=== PATIENT | male | born 1980 | race Caucasian/White ===

== ENCOUNTER 2017-11-15 12:34 | Inpatient (IN) | payer MEDICAID ==
[~2017-11-15] VITALS: Ht 174 cm; Wt 87.7 kg
[2017-11-15 13:05] LABS: BASOPHILS # (AUTO) 0.03 x10^3/uL (0-0.1); BASOPHILS % (AUTO) 0 % (0-1); EOSINOPHILS # (AUTO) 0.02 x10^3/uL (0-0.4); EOSINOPHILS % (AUTO) 0 % (1-7); LYMPHOCYTES # (AUTO) 1.68 x10^3/uL (1-3.4); LYMPHOCYTES % (AUTO) 20 % (22-44); MD NO; MEAN CORPUSCULAR HEMOGLOBIN 30.7 pg (27.5-34.5); MEAN CORPUSCULAR VOLUME 90.3 fL (81-97); MEAN PLATELET VOLUME 6.9 fL (7.4-10.4); MONOCYTES % (AUTO) 6 % (2-9); NEUTROPHILS # (AUTO) 6.17 x10^3/uL (1.8-6.8); NEUTROPHILS % (AUTO) 73 % (42-75); PLATELET COUNT 326 x10^3/uL (130-400); RED BLOOD COUNT 5.31 x10^6/uL (4.38-5.82); RED CELL DISTRIBUTION WIDTH 14.9 % (9.4-14.8)
[2017-11-15 13:17] LABS: ALBUMIN 3.6 g/dL (3.4-5.0); ANION GAP 15 mmol/L (5-15); CALCIUM 8.6 mg/dL (8.5-10.1); CHLORIDE 97 mmol/L (98-107)
[2017-11-15 13:21] LABS: ALANINE AMINOTRANSFERASE 36 U/L (12-78); ALKALINE PHOSPHATASE 172 U/L (45-117); BILIRUBIN,TOTAL 0.3 mg/dL (0.2-1.0); CREATININE 0.92 mg/dL (0.7-1.3); TOTAL PROTEIN 7.5 g/dL (6.4-8.2)
[2017-11-15 13:24] LABS: SALICYLATE LEVEL < 1.7 mg/dL (2.8-20.0)
[2017-11-15 13:27] LABS: ACETAMINOPHEN < 2 mcg/mL (10-30)
[2017-11-15 15:15] LABS: AMPHETAMINE SCREEN, URINE Negative (Negative); BARBITURATE SCREEN, URINE Negative (Negative); BENZODIAZEPINE SCREEN, URINE Negative (Negative); CANNABINOID SCREEN, URINE Negative (Negative); COCAINE SCREEN, URINE Negative (Negative); METHADONE SCREEN, URINE Negative (Negative); OPIATE SCREEN, URINE Negative (Negative)
[2017-11-15] MEDS ORDERED: CHLORDIAZEPOXIDE 25 MG CAPSULE ONE (19:57)
[2017-11-15] MEDS ORDERED: CHLORDIAZEPOXIDE 25 MG CAPSULE PO PRN (20:00)
[2017-11-15] MEDS ORDERED: LORazepam 1MG TABLET PO ONE ×2 (21:30→23:00)
[2017-11-15] MEDS ORDERED: LORazepam 1MG TABLET ONE ×2 (21:31→23:17)
[2017-11-16] MEDS: SODIUM CHLORIDE 0.9% 1,000 ML IV SCH ×2 (00:09→21:04)
[2017-11-16] MEDS ORDERED: PROMETHAZINE 25 MG/ML, 1ML IM PRN (00:30)
[2017-11-16] MEDS ORDERED: LORazepam 0.5MG TABLET PO PRN (00:30)
[2017-11-16] MEDS ORDERED: LABETALOL 5MG/ML, 20ML IVPush PRN (00:30)
[2017-11-16] MEDS ORDERED: POLYETHYLENE GLYCOL 17 GM PACKET PO PRN (00:30)
[2017-11-16] MEDS ORDERED: LORazepam 2 MG/ML, 1ML IV PRN ×3 (00:30)
[2017-11-16] MEDS ORDERED: ONDANSETRON ODT 4 MG PO PRN (00:30)
[2017-11-16] MEDS ORDERED: ONDANSETRON 2MG/ML, 2ML IVPush PRN (00:30)
[2017-11-16] MEDS ORDERED: hydrALAzine 20 MG/ML, 1ML IVPush PRN (00:30)
[2017-11-16] MEDS: CEPHALEXIN 500 MG CAPSULE PO SCH ×5 (00:30→21:03)
[2017-11-16] MEDS ORDERED: morphine SULFATE 10 MG/ML, 1ML IVPush PRN (00:30)
[2017-11-16] MEDS ORDERED: LORazepam 1MG TABLET PO PRN ×3 (00:30)
[2017-11-16] MEDS ORDERED: DOCUSATE 100 MG CAPSULE PO PRN (00:30)
[2017-11-16] MEDS ORDERED: BISACODYL 10 MG SUPP PR PRN (00:30)
[2017-11-16 00:45] LABS: FREE T4 (FREE THYROXINE) 1.05 ng/dL (0.76-1.46); THYROID STIMULATING HORMONE 0.808 mIU/L (0.358-3.740)
[2017-11-16 00:49] LABS: HEMOGLOBIN A1C 5.2 % (4.2-6.3)
[2017-11-16] MEDS ORDERED: CEPHALEXIN 250 MG CAPSULE ONE ×3 (00:56→17:39)
[2017-11-16] MEDS: HEPARIN 5,000 UNITS/ML, 1ML SQ SCH ×3 (01:01→17:41)
[2017-11-16 01:32] VITALS: BP 149/80
[2017-11-16] MEDS: POTASSIUM CHLORIDE 20 MEQ, MAGNESIUM SULFATE 2 GM, THIAMINE 100 MG, MVI ADULT 10 ML, FO... IV SCH (01:33)
[2017-11-16 06:39] VITALS: BP 151/89
[2017-11-16] MEDS: CHLORDIAZEPOXIDE 25 MG CAPSULE PO SCH ×3 (08:58→21:03)
[2017-11-16] MEDS: LORazepam 2 MG/ML, 1ML IV PRN ×2 (09:18→14:06)
[2017-11-16 13:20] VITALS: BP 144/80
[2017-11-16 14:15] LABS: MICROSCOPIC NOT IND
[2017-11-16 14:16] LABS: CULTURE INDICATED? NO
[2017-11-16 19:53] VITALS: BP 138/86
[2017-11-17] MEDS: POTASSIUM CHLORIDE 20 MEQ, MAGNESIUM SULFATE 2 GM, THIAMINE 100 MG, MVI ADULT 10 ML, FO... IV SCH (01:41)
[2017-11-17] MEDS: HEPARIN 5,000 UNITS/ML, 1ML SQ SCH ×3 (01:42→17:55)
[2017-11-17] MEDS: LORazepam 2 MG/ML, 1ML IV PRN ×3 (01:53→13:47)
[2017-11-17 02:06] VITALS: BP 129/77
[2017-11-17 06:12] LABS: BASOPHILS # (AUTO) 0.01 x10^3/uL (0-0.1); BASOPHILS % (AUTO) 0 % (0-1); EOSINOPHILS # (AUTO) 0.17 x10^3/uL (0-0.4); EOSINOPHILS % (AUTO) 4 % (1-7); LYMPHOCYTES # (AUTO) 1.54 x10^3/uL (1-3.4); LYMPHOCYTES % (AUTO) 36 % (22-44); MD NO; MEAN CORPUSCULAR HEMOGLOBIN 30.6 pg (27.5-34.5); MEAN CORPUSCULAR HGB CONC 33.7 g/dL (33.2-36.2); MEAN CORPUSCULAR VOLUME 90.8 fL (81-97); MEAN PLATELET VOLUME 7.3 fL (7.4-10.4); MONOCYTES # (AUTO) 0.38 x10^3/uL (0.2-0.8); MONOCYTES % (AUTO) 9 % (2-9); NEUTROPHILS # (AUTO) 2.17 x10^3/uL (1.8-6.8); NEUTROPHILS % (AUTO) 51 % (42-75); PLATELET COUNT 209 x10^3/uL (130-400); RED BLOOD COUNT 4.47 x10^6/uL (4.38-5.82); RED CELL DISTRIBUTION WIDTH 14.8 % (9.4-14.8)
[2017-11-17 06:21] LABS: ALANINE AMINOTRANSFERASE 27 U/L (12-78); ALBUMIN 2.6 g/dL (3.4-5.0); ANION GAP 8 mmol/L (5-15); CALCIUM 8.2 mg/dL (8.5-10.1); CHLORIDE 105 mmol/L (98-107); CHOLESTEROL, TOTAL 179 mg/dL (140-239); CREATININE 0.95 mg/dL (0.7-1.3)
[2017-11-17 06:23] LABS: ALKALINE PHOSPHATASE 131 U/L (45-117); BILIRUBIN,TOTAL 0.4 mg/dL (0.2-1.0); CHOL/HDL RATIO 3.8; HDL CHOL % 26 % (26-37); HDL CHOLESTEROL (DIRECT) 47 mg/dL (40-60); LDL CHOLESTEROL,CALCULATED 71 mg/dL (54-169); LDL/HDL RATIO 1.5 (0.5-3.0); TOTAL PROTEIN 5.8 g/dL (6.4-8.2); TRIGLYCERIDES 307 mg/dL (50-200); VLDL CHOLESTEROL 61 mg/dL (0-25)
[2017-11-17] MEDS: CEPHALEXIN 500 MG CAPSULE PO SCH ×4 (06:41→21:06)
[2017-11-17 07:16] VITALS: BP 123/78
[2017-11-17] MEDS ORDERED: CEPHALEXIN 250 MG CAPSULE ONE ×3 (09:55→20:57)
[2017-11-17] MEDS: CHLORDIAZEPOXIDE 25 MG CAPSULE PO SCH ×3 (10:07→21:00)
[2017-11-17 12:53] VITALS: BP 127/82
[2017-11-17] MEDS: LORazepam 1MG TABLET PO PRN (17:54)
[2017-11-17 20:46] VITALS: BP 128/74
[2017-11-18 00:09] VITALS: BP 118/69
[2017-11-18] MEDS: HEPARIN 5,000 UNITS/ML, 1ML SQ SCH ×3 (01:38→17:57)
[2017-11-18] MEDS: POTASSIUM CHLORIDE 20 MEQ, MAGNESIUM SULFATE 2 GM, THIAMINE 100 MG, MVI ADULT 10 ML, FO... IV SCH (01:38)
[2017-11-18] MEDS: CEPHALEXIN 500 MG CAPSULE PO SCH ×4 (06:28→20:27)
[2017-11-18] MEDS: LORazepam 1MG TABLET PO PRN ×3 (06:35→23:05)
[2017-11-18 07:07] VITALS: BP 116/74
[2017-11-18] MEDS: CHLORDIAZEPOXIDE 25 MG CAPSULE PO SCH ×3 (09:49→20:27)
[2017-11-18 12:26] VITALS: BP 145/79
[2017-11-18 20:00] VITALS: BP 117/75
[2017-11-19 00:39] VITALS: BP 115/76
[2017-11-19] MEDS: HEPARIN 5,000 UNITS/ML, 1ML SQ SCH ×3 (01:39→16:50)
[2017-11-19] MEDS: CEPHALEXIN 500 MG CAPSULE PO SCH ×4 (05:53→20:42)
[2017-11-19] MEDS: LORazepam 1MG TABLET PO PRN ×2 (08:49→16:50)
[2017-11-19] MEDS: CHLORDIAZEPOXIDE 25 MG CAPSULE PO SCH (08:49)
[2017-11-19 09:46] VITALS: BP 98/64
[2017-11-19 15:21] VITALS: BP 116/74
[2017-11-19 18:15] VITALS: BP 119/73
[2017-11-20 00:10] VITALS: BP 123/77
[2017-11-20] MEDS: HEPARIN 5,000 UNITS/ML, 1ML SQ SCH ×3 (01:47→17:59)
[2017-11-20] MEDS: CEPHALEXIN 500 MG CAPSULE PO SCH ×3 (05:38→17:59)
[2017-11-20 07:38] VITALS: BP 108/72
[2017-11-20] MEDS ORDERED: CEPH-376 PO (08:00)
[2017-11-20] MEDS ORDERED: LORA-446 PO (08:00)
[2017-11-20] MEDS ORDERED: CHLO25CA9 PO (08:00)
[2017-11-20] MEDS: LORazepam 1MG TABLET PO PRN (08:24)
[2017-11-20] MEDS ORDERED: CHLORDIAZEPOXIDE 25 MG CAPSULE PO SCH (09:00)
[2017-11-20 12:47] VITALS: BP 127/73
[2017-11-20 18:21] VITALS: BP 132/81
== END 2017-11-20 19:01 | DRG 897 ==
LOC: ED 15:04 → EDIP 22:58 → 4NOR 11-16 00:25
PROVIDERS: ADMIT Internal Medicine; ATTEND Internal Medicine
DX: F10.239 Alcohol dependence with withdrawal, unspecified (principal); R45.851 Suicidal ideations; F10.229 Alcohol dependence with intoxication, unspecified; F32.9 Major depressive disorder, single episode, unspecified; S91.302A Unspecified open wound, left foot, initial encounter; X58.XXXA Exposure to other specified factors, initial encounter; Y93.89 Activity, other specified; Y92.89 Other specified places as the place of occurrence of the external cause; Y99.8 Other external cause status; Z79.899 Other long term (current) drug therapy
CPT/HCPCS: 36415; 73650; 99285; J7042; 80053; 80061; 80307; 80329; 81003; 83036; 83735; 84439; 84443; 85025; 87070; 87077; 87147; 87186; 87205; 93005; G0378; J1644; J3411; J3475; J3480; G0480; J2060; J7030

== ENCOUNTER 2018-04-20 06:19 | Emergency (ER) | payer MEDICAID ==
[~2018-04-20] VITALS: Ht 172.7 cm; Wt 90.9 kg
[~2018-04-20 06:19] MED LIST: CEPH-376 PO; CHLO25CA9 PO; LORA-446 PO
--- NOTE | 2018-04-20 06:50 | NUR ---
RECEIVED BEDSIDE REPORT FROM ROSENDO ANGUIANO. PER REPORT PT HAS BEEN BINGE DRINKING FOR 5 DAYS. PT APPEARS TREMELOUS. VSS. LAB BEDSIDE.
[2018-04-20 07:00] LABS: BASOPHILS # (AUTO) 0.02 x10^3/uL (0-0.1); BASOPHILS % (AUTO) 0 % (0-1); EOSINOPHILS # (AUTO) 0.11 x10^3/uL (0-0.4); EOSINOPHILS % (AUTO) 1 % (1-7); LYMPHOCYTES % (AUTO) 20 % (22-44); MD NO; MEAN CORPUSCULAR HEMOGLOBIN 29.7 pg (27.5-34.5); MEAN CORPUSCULAR VOLUME 89.9 fL (81-97); MEAN PLATELET VOLUME 7.6 fL (7.4-10.4); MONOCYTES # (AUTO) 0.35 x10^3/uL (0.2-0.8); MONOCYTES % (AUTO) 3 % (2-9); NEUTROPHILS # (AUTO) 7.93 x10^3/uL (1.8-6.8); NEUTROPHILS % (AUTO) 76 % (42-75); PLATELET COUNT 357 x10^3/uL (130-400); RED BLOOD COUNT 5.37 x10^6/uL (4.38-5.82); RED CELL DISTRIBUTION WIDTH 14.1 % (9.4-14.8)
[2018-04-20] MEDS ORDERED: LORazepam 1MG TABLET PO ONE (07:00)
[2018-04-20] MEDS ORDERED: THIAMINE 100MG TABLET PO ONE (07:00)
[2018-04-20] MEDS ORDERED: LORazepam 1MG TABLET ONE (07:01)
[2018-04-20] MEDS ORDERED: THIAMINE 100MG TABLET ONE (07:02)
--- NOTE | 2018-04-20 07:05 | NUR ---
PER PT "MY LAST DRINK WAS LAST NIGHT AT 6PM. I'VE BEEN SOBER BEFORE FOR 7 MONTHS. I JUST GET REALLY DEPRESSED AND START DRINKING AGAIN. I WAS ON WELLS. I GET DEPRESSED BECAUSE OF MY MOM, DOG, EX GIRLFRIEND. I DON'T LIKE GOING TO THE [facility]. I DON'T HAVE A PLACE TO LIVE. NELI NEVER GOTTEN ANY HELP FOR MY DEPRESSION." VSS
[2018-04-20 07:09] LABS: ALANINE AMINOTRANSFERASE 39 U/L (12-78); ANION GAP 8 mmol/L (5-15); CALCIUM 9.6 mg/dL (8.5-10.1); CHLORIDE 108 mmol/L (98-107); CREATININE 1.04 mg/dL (0.7-1.3)
[2018-04-20 07:12] LABS: ALKALINE PHOSPHATASE 100 U/L (45-117); BILIRUBIN,TOTAL 0.3 mg/dL (0.2-1.0); TOTAL PROTEIN 7.8 g/dL (6.4-8.2)
[2018-04-20 08:01] VITALS: BP 118/73
--- NOTE | 2018-04-20 08:01 | NUR ---
Patient/Caregiver given discharge instructions and they have confirmed that they understand the instructions. Patient ambulatory with steady gait. PT LEFT WITH ALL PERSONAL BELONGINGS. PT GIVEN TAXI VOUCHER TO [place].
== END 2018-04-20 08:03 | disposition home or self-care (01) ==
LOC: ED 06:57
DX: T33.832A Superficial frostbite of left toe(s), initial encounter (principal); T33.831A Superficial frostbite of right toe(s), initial encounter; F10.239 Alcohol dependence with withdrawal, unspecified; R45.1 Restlessness and agitation; X58.XXXA Exposure to other specified factors, initial encounter; Y93.89 Activity, other specified; Y92.89 Other specified places as the place of occurrence of the external cause; Y99.8 Other external cause status
CPT/HCPCS: 36415; 80053; 80307; 85025; 99283

== ENCOUNTER 2018-06-05 14:53 | Inpatient (IN) | payer MEDICAID ==
[~2018-06-05] VITALS: Ht 182.9 cm; Wt 93.8 kg
[2018-06-05 15:46] LABS: BASOPHILS # (AUTO) 0.02 x10^3/uL (0-0.1); BASOPHILS % (AUTO) 0 % (0-1); EOSINOPHILS # (AUTO) 0.03 x10^3/uL (0-0.4); EOSINOPHILS % (AUTO) 0 % (1-7); LYMPHOCYTES # (AUTO) 1.54 x10^3/uL (1-3.4); LYMPHOCYTES % (AUTO) 18 % (22-44); MD NO; MEAN CORPUSCULAR HEMOGLOBIN 30.2 pg (27.5-34.5); MEAN CORPUSCULAR HGB CONC 33.5 g/dL (33.2-36.2); MEAN CORPUSCULAR VOLUME 90.3 fL (81-97); MEAN PLATELET VOLUME 8.2 fL (7.4-10.4); MONOCYTES # (AUTO) 0.56 x10^3/uL (0.2-0.8); MONOCYTES % (AUTO) 7 % (2-9); NEUTROPHILS # (AUTO) 6.48 x10^3/uL (1.8-6.8); NEUTROPHILS % (AUTO) 75 % (42-75); PLATELET COUNT 342 x10^3/uL (130-400); RED BLOOD COUNT 5.11 x10^6/uL (4.38-5.82); RED CELL DISTRIBUTION WIDTH 14.6 % (9.4-14.8)
[2018-06-05 15:57] LABS: ALBUMIN 4.3 g/dL (3.4-5.0); ANION GAP 13 mmol/L (5-15); CALCIUM 9.4 mg/dL (8.5-10.1); CHLORIDE 107 mmol/L (98-107)
--- NOTE | 2018-06-05 16:17 | NUR ---
TRAY SETTER: PT TO ROOM FROM LOBBY VIA WHEELCHAIR
[2018-06-05 16:44] LABS: HCT (SEDRATE) 46.1 % (39.2-51.8)
[2018-06-05] MEDS ORDERED: PIPERACILLIN/TAZO/PMX 3.375GM 50 ML IV ONE (17:00)
[2018-06-05] MEDS ORDERED: GABAPENTIN 300 MG CAPSULE PO ONE (17:00)
--- NOTE | 2018-06-05 17:06 | NUR ---
PER PT " I WAS TAKING GABAPENTIN AND AMOXICILLIN BUT MANTACHIE TOOK THEM AWAY. SO I HAVEN'T TAKEN THEM FOR OVER THREE WEEKS."
--- NOTE | 2018-06-05 17:08 | NUR ---
37 Y/O MALE PRESENTS TO ED WITH C/O FOOT PAIN. PER PT "MY FEET HURT. YOU CAN SEE THEY'RE SWOLLEN AND PUS IS COMING OUT. BOTH OF THEM HURT. THE RIGHT ONE IS BAD BECAUSE THE TOES ARE RED. BUT MY LEFT FOOT HURTS JUST BAD. I WAS AT [facility] FOR THE SAME THING FROM 03/26/2018-04/18/2018" PT PLACED ON CONT PULSE OX,NIBP. NO C/O TRAUMA, SYNCOPE, CP, SOB.
[2018-06-05 17:13] LABS: ACETONE, SERUM Negative (Negative)
--- NOTE | 2018-06-05 17:13 | NUR ---
PT TO IMAGING
[2018-06-05] MEDS ORDERED: GABAPENTIN 300 MG CAPSULE ONE (17:15)
[2018-06-05] MEDS ORDERED: PIPERACILLIN/TAZO/PMX 3.375GM 50 ML ONE (17:15)
--- NOTE | 2018-06-05 17:27 | NUR ---
REPORT TO ROSENDO GLEASON. ALL QUESTIONS ANSWERED
[2018-06-05] MEDS ORDERED: GADOBUTROL 7.5 MMOL/7.5 ML PFS ONE (17:36)
[2018-06-05] MEDS ORDERED: ONDANSETRON ODT 4 MG PO PRN (18:00)
[2018-06-05] MEDS ORDERED: LABETALOL 5 MG/ML SYRINGE IVPush PRN (18:00)
[2018-06-05] MEDS ORDERED: IBUPROFEN 600 MG TABLET PO PRN (18:00)
[2018-06-05] MEDS ORDERED: hydrALAzine 20 MG/ML, 1ML IVPush PRN (18:00)
[2018-06-05] MEDS ORDERED: VANCOMYCIN PER PHARMACY MC PRN (18:00)
[2018-06-05] MEDS ORDERED: ONDANSETRON 2MG/ML, 2ML IVPush PRN (18:00)
--- NOTE | 2018-06-05 18:03 | NUR ---
pt back from imaging. pt resting on gurney. no acute distress noted.
--- NOTE | 2018-06-05 18:28 | NUR ---
PT TRANSFERRED TO FLOOR. PT LEFT WITH ALL PERSONAL BELONGINGS.
[2018-06-05] MEDS ORDERED: PHARMACOKINETIC MONITORING MC PRN (18:30)
[2018-06-05 18:40] VITALS: BP 125/70
[2018-06-05] MEDS: AMPICILLIN/SULBACTAM 3 GM in SODIUM CHLORIDE 0.9% 100 ML IV SCH (20:41)
[2018-06-05] MEDS: SODIUM CHLORIDE 0.9% 1,000 ML IV SCH (20:42)
[2018-06-05] MEDS: GABAPENTIN 300 MG CAPSULE PO PRN (20:45)
[2018-06-05] MEDS: VANCOMYCIN 1,900 MG in SODIUM CHLORIDE 0.9% 250 ML IV SCH (22:56)
[2018-06-06 02:46] VITALS: BP 110/65
[2018-06-06] MEDS: AMPICILLIN/SULBACTAM 3 GM in SODIUM CHLORIDE 0.9% 100 ML IV SCH ×4 (03:27→21:20)
[2018-06-06 04:59] LABS: BASOPHILS # (AUTO) 0.03 x10^3/uL (0-0.1); BASOPHILS % (AUTO) 0 % (0-1); EOSINOPHILS # (AUTO) 0.14 x10^3/uL (0-0.4); EOSINOPHILS % (AUTO) 2 % (1-7); LYMPHOCYTES # (AUTO) 2.01 x10^3/uL (1-3.4); LYMPHOCYTES % (AUTO) 25 % (22-44); MD NO; MEAN CORPUSCULAR HEMOGLOBIN 30.8 pg (27.5-34.5); MEAN CORPUSCULAR HGB CONC 33.8 g/dL (33.2-36.2); MEAN CORPUSCULAR VOLUME 91.2 fL (81-97); MEAN PLATELET VOLUME 8.2 fL (7.4-10.4); MONOCYTES # (AUTO) 0.78 x10^3/uL (0.2-0.8); MONOCYTES % (AUTO) 10 % (2-9); NEUTROPHILS # (AUTO) 4.95 x10^3/uL (1.8-6.8); NEUTROPHILS % (AUTO) 63 % (42-75); PLATELET COUNT 272 x10^3/uL (130-400)
[2018-06-06 05:10] LABS: ANION GAP 6 mmol/L (5-15); CALCIUM 8.5 mg/dL (8.5-10.1); CHLORIDE 109 mmol/L (98-107); CREATININE 1.16 mg/dL (0.7-1.3)
[2018-06-06 07:38] VITALS: BP 93/48
[2018-06-06] MEDS: VANCOMYCIN 1,900 MG in SODIUM CHLORIDE 0.9% 250 ML IV SCH ×2 (10:59→23:19)
[2018-06-06] MEDS: GABAPENTIN 300 MG CAPSULE PO PRN ×2 (11:20→21:20)
[2018-06-06] MEDS: SODIUM CHLORIDE 0.9% 1,000 ML IV SCH ×2 (15:05→23:20)
[2018-06-06 15:41] VITALS: BP 103/67
[2018-06-06 16:56] LABS: AMPHETAMINE SCREEN, URINE Negative (Negative); BARBITURATE SCREEN, URINE Negative (Negative); BENZODIAZEPINE SCREEN, URINE Negative (Negative); CANNABINOID SCREEN, URINE Negative (Negative); COCAINE SCREEN, URINE Negative (Negative); METHADONE SCREEN, URINE Negative (Negative); OPIATE SCREEN, URINE Negative (Negative)
[2018-06-06] MEDS: DOCUSATE 100 MG CAPSULE PO PRN (17:38)
[2018-06-06 20:35] VITALS: BP 112/57
[2018-06-07 01:48] VITALS: BP 118/68
[2018-06-07] MEDS: AMPICILLIN/SULBACTAM 3 GM in SODIUM CHLORIDE 0.9% 100 ML IV SCH ×4 (03:34→20:43)
[2018-06-07 05:54] LABS: BASOPHILS # (AUTO) 0.03 x10^3/uL (0-0.1); BASOPHILS % (AUTO) 1 % (0-1); EOSINOPHILS # (AUTO) 0.32 x10^3/uL (0-0.4); EOSINOPHILS % (AUTO) 7 % (1-7); LYMPHOCYTES # (AUTO) 1.79 x10^3/uL (1-3.4); LYMPHOCYTES % (AUTO) 38 % (22-44); MD NO; MEAN CORPUSCULAR HEMOGLOBIN 30.3 pg (27.5-34.5); MEAN CORPUSCULAR HGB CONC 33.3 g/dL (33.2-36.2); MEAN CORPUSCULAR VOLUME 91.1 fL (81-97); MEAN PLATELET VOLUME 8.1 fL (7.4-10.4); MONOCYTES # (AUTO) 0.39 x10^3/uL (0.2-0.8); MONOCYTES % (AUTO) 8 % (2-9); NEUTROPHILS # (AUTO) 2.15 x10^3/uL (1.8-6.8); NEUTROPHILS % (AUTO) 46 % (42-75); PLATELET COUNT 247 x10^3/uL (130-400); RED BLOOD COUNT 4.02 x10^6/uL (4.38-5.82); RED CELL DISTRIBUTION WIDTH 15.5 % (9.4-14.8)
[2018-06-07 06:04] LABS: ALBUMIN 2.7 g/dL (3.4-5.0); ANION GAP 5 mmol/L (5-15); CALCIUM 8.1 mg/dL (8.5-10.1); CHLORIDE 112 mmol/L (98-107)
[2018-06-07 06:08] LABS: ALANINE AMINOTRANSFERASE 20 U/L (12-78); ALKALINE PHOSPHATASE 71 U/L (45-117); BILIRUBIN,TOTAL 0.2 mg/dL (0.2-1.0); CREATININE 1.02 mg/dL (0.7-1.3); TOTAL PROTEIN 5.5 g/dL (6.4-8.2)
[2018-06-07 07:49] VITALS: BP 110/59
[2018-06-07] MEDS: SODIUM CHLORIDE 0.9% 1,000 ML IV SCH (11:36)
[2018-06-07] MEDS: VANCOMYCIN 1,900 MG in SODIUM CHLORIDE 0.9% 250 ML IV SCH ×2 (11:36→23:03)
[2018-06-07] MEDS: GABAPENTIN 300 MG CAPSULE PO PRN ×2 (11:36→20:43)
[2018-06-07 14:51] VITALS: BP 124/61
[2018-06-07 20:54] VITALS: BP 116/79
[2018-06-08 01:24] VITALS: BP 113/86
[2018-06-08] MEDS: AMPICILLIN/SULBACTAM 3 GM in SODIUM CHLORIDE 0.9% 100 ML IV SCH ×4 (02:31→20:48)
[2018-06-08] MEDS: SODIUM CHLORIDE 0.9% 1,000 ML IV SCH ×2 (02:31→17:51)
[2018-06-08 07:36] VITALS: BP 128/69
[2018-06-08] MEDS: GABAPENTIN 300 MG CAPSULE PO PRN ×2 (09:04→23:06)
[2018-06-08] MEDS: VANCOMYCIN 1,900 MG in SODIUM CHLORIDE 0.9% 250 ML IV SCH (11:01)
[2018-06-08 14:46] VITALS: BP 112/68
[2018-06-08 20:23] VITALS: BP 120/64
[2018-06-09 01:10] VITALS: BP 121/58
[2018-06-09] MEDS: AMPICILLIN/SULBACTAM 3 GM in SODIUM CHLORIDE 0.9% 100 ML IV SCH ×4 (02:44→20:39)
[2018-06-09] MEDS: VANCOMYCIN 1,900 MG in SODIUM CHLORIDE 0.9% 250 ML IV SCH ×2 (05:15→23:02)
[2018-06-09] MEDS: SODIUM CHLORIDE 0.9% 1,000 ML IV SCH (07:00)
[2018-06-09 07:15] VITALS: BP 108/66
[2018-06-09 12:09] VITALS: BP 155/77
[2018-06-09] MEDS: KETOROLAC 30 MG/1 ML IVPush PRN ×2 (12:38→15:12)
[2018-06-09] MEDS ORDERED: MIDAZOLAM 1 MG/ML, 2ML ONE (17:48)
[2018-06-09] MEDS ORDERED: FENTANYL PF 250 MCG/5ML ONE (17:48)
[2018-06-09] MEDS ORDERED: PROPOFOL 10 MG/ML, 20ML ONE (17:50)
[2018-06-09] MEDS ORDERED: ONDANSETRON 2MG/ML, 2ML ONE (17:50)
[2018-06-09] MEDS ORDERED: ONDANSETRON 2MG/ML, 2ML IV PRN (18:00)
[2018-06-09] MEDS ORDERED: ACETAMINOPHEN 325 MG TABLET PO PRN (18:00)
[2018-06-09] MEDS ORDERED: OXYcodone 5 MG/5 ML ORAL.SOL UDC PO PRN (18:00)
[2018-06-09] MEDS ORDERED: MEPERIDINE/PF 25MG/0.5ML IVPush PRN (18:00)
[2018-06-09] MEDS ORDERED: FENTANYL PF 100 MCG/2ML IV PRN (18:00)
[2018-06-09] MEDS ORDERED: ONDANSETRON ODT 8 MG PO PRN (18:00)
[2018-06-09] MEDS ORDERED: LORazepam 2 MG/ML, 1ML IVPush PRN (18:00)
[2018-06-09] MEDS ORDERED: PROMETHAZINE 25 MG/ML, 1ML IV PRN (18:00)
[2018-06-09] MEDS ORDERED: PROMETHAZINE 25 MG/ML, 1ML IM PRN (18:00)
[2018-06-09] MEDS ORDERED: BUPIVACAINE/PF 0.5% ONE (18:10)
[2018-06-09] MEDS ORDERED: LIDOCAINE 1%, 20ML ONE (18:11)
[2018-06-09] MEDS ORDERED: KETOROLAC 30 MG/1 ML ONE (19:04)
[2018-06-09] MEDS ORDERED: OXYcodone 5 MG/5 ML ORAL.SOL UDC ONE (19:04)
[2018-06-09] MEDS ORDERED: HYDROmorphone 2 MG/ML, 1ML ONE (19:22)
[2018-06-09] MEDS: HYDROmorphone 2 MG/ML, 1ML IVPush PRN ×2 (19:26→19:31)
[2018-06-09 19:57] VITALS: BP 126/84
[2018-06-09] MEDS: GABAPENTIN 300 MG CAPSULE PO PRN (22:13)
[2018-06-10 01:46] VITALS: BP 116/77
[2018-06-10] MEDS: KETOROLAC 30 MG/1 ML IV PRN ×2 (02:15→14:07)
[2018-06-10] MEDS: AMPICILLIN/SULBACTAM 3 GM in SODIUM CHLORIDE 0.9% 100 ML IV SCH ×2 (03:05→09:31)
[2018-06-10 05:39] LABS: BASOPHILS # (AUTO) 0.03 x10^3/uL (0-0.1); BASOPHILS % (AUTO) 1 % (0-1); EOSINOPHILS # (AUTO) 0.31 x10^3/uL (0-0.4); EOSINOPHILS % (AUTO) 4 % (1-7); LYMPHOCYTES # (AUTO) 1.59 x10^3/uL (1-3.4); LYMPHOCYTES % (AUTO) 22 % (22-44); MD NO; MEAN CORPUSCULAR HEMOGLOBIN 31.1 pg (27.5-34.5); MEAN CORPUSCULAR HGB CONC 34.3 g/dL (33.2-36.2); MEAN CORPUSCULAR VOLUME 90.7 fL (81-97); MEAN PLATELET VOLUME 8.1 fL (7.4-10.4); MONOCYTES # (AUTO) 0.54 x10^3/uL (0.2-0.8); MONOCYTES % (AUTO) 8 % (2-9); NEUTROPHILS # (AUTO) 4.79 x10^3/uL (1.8-6.8); NEUTROPHILS % (AUTO) 66 % (42-75); PLATELET COUNT 260 x10^3/uL (130-400); RED BLOOD COUNT 4.26 x10^6/uL (4.38-5.82)
[2018-06-10 05:52] LABS: CHLORIDE 106 mmol/L (98-107)
[2018-06-10 06:03] LABS: ANION GAP 8 mmol/L (5-15); CALCIUM 8.5 mg/dL (8.5-10.1); CREATININE 1.11 mg/dL (0.7-1.3)
[2018-06-10 07:41] VITALS: BP 119/63
[2018-06-10] MEDS: GABAPENTIN 300 MG CAPSULE PO PRN ×2 (09:48→17:42)
[2018-06-10 13:35] VITALS: BP 115/70
[2018-06-10] MEDS: VANCOMYCIN 1,900 MG in SODIUM CHLORIDE 0.9% 250 ML IV SCH (17:42)
[2018-06-10 18:31] VITALS: BP 113/73
[2018-06-11 00:39] VITALS: BP 117/70
[2018-06-11] MEDS: GABAPENTIN 300 MG CAPSULE PO PRN ×2 (05:16→18:21)
[2018-06-11 07:28] VITALS: BP 123/77
[2018-06-11] MEDS: KETOROLAC 30 MG/1 ML IVPush PRN ×2 (08:38→18:22)
[2018-06-11] MEDS: ACETAMINOPHEN 325 MG TABLET PO PRN ×2 (08:38→18:21)
[2018-06-11] MEDS: VANCOMYCIN 1,900 MG in SODIUM CHLORIDE 0.9% 250 ML IV SCH (11:34)
[2018-06-11 13:51] VITALS: BP 129/75
[2018-06-11 19:02] VITALS: BP 122/71
[2018-06-12] MEDS: KETOROLAC 30 MG/1 ML IVPush PRN (00:22)
[2018-06-12 01:14] VITALS: BP 113/69
[2018-06-12] MEDS: VANCOMYCIN 1,900 MG in SODIUM CHLORIDE 0.9% 250 ML IV SCH (05:34)
[2018-06-12] MEDS: GABAPENTIN 300 MG CAPSULE PO PRN ×2 (09:52→23:53)
[2018-06-12 09:55] VITALS: BP 122/74
[2018-06-12 12:20] LABS: HCT (SEDRATE) 41.1 % (39.2-51.8)
[2018-06-12] MEDS: DAPTOMYCIN 550 MG in SODIUM CHLORIDE 0.9% 100 ML IVPB SCH (12:30)
[2018-06-12 12:41] VITALS: BP 143/87
[2018-06-12 12:59] LABS: C-REACTIVE PROTEIN, QUANT 2.4 mg/dL (0.02-0.49)
[2018-06-12] MEDS: DOCUSATE 100 MG CAPSULE PO PRN (13:25)
[2018-06-12] MEDS ORDERED: HYDROmorphone 2 MG/ML, 1ML ONE (16:03)
[2018-06-12 19:57] VITALS: BP 122/74
[2018-06-13 01:09] VITALS: BP 118/72
[2018-06-13 07:35] VITALS: BP 124/75
[2018-06-13] MEDS: DOCUSATE 100 MG CAPSULE PO PRN (09:52)
[2018-06-13] MEDS: GABAPENTIN 300 MG CAPSULE PO PRN ×2 (09:52→18:12)
[2018-06-13] MEDS: DAPTOMYCIN 550 MG in SODIUM CHLORIDE 0.9% 100 ML IVPB SCH (12:22)
[2018-06-13 14:20] VITALS: BP 118/70
[2018-06-13 19:32] VITALS: BP 122/66
[2018-06-13] MEDS: KETOROLAC 30 MG/1 ML IVPush PRN (22:50)
[2018-06-14 02:07] VITALS: BP 118/69
[2018-06-14] MEDS: GABAPENTIN 300 MG CAPSULE PO PRN ×2 (02:10→10:05)
[2018-06-14 07:03] VITALS: BP 122/73
[2018-06-14 12:38] VITALS: BP 126/79
[2018-06-14] MEDS: DAPTOMYCIN 550 MG in SODIUM CHLORIDE 0.9% 100 ML IVPB SCH (12:39)
[2018-06-14] MEDS ORDERED: ONDA4TAB13 PO (14:50)
[2018-06-14] MEDS ORDERED: ACET325T14 PO (14:50)
[2018-06-14] MEDS ORDERED: DAPT500V6 IV (14:50)
[2018-06-14] MEDS ORDERED: IBUP-1222 PO (14:50)
[2018-06-14] MEDS ORDERED: GABA300C10 PO (14:50)
== END 2018-06-14 18:06 | DRG 464 ==
LOC: ED 16:43 → EDIP 16:52 → 3NE 17:18
PROVIDERS: ADMIT Internal Medicine; ATTEND Internal Medicine
PROC: 0JBQ0ZZ Excision of Right Foot Subcutaneous Tissue and Fascia, Open Approach (ICD-10-PCS; 2018-06-09)
PROC: 0L8N0ZZ Division of Right Lower Leg Tendon, Open Approach (ICD-10-PCS; 2018-06-09)
PROC: 0Y6R0Z3 Detachment at Right 2nd Toe, Low, Open Approach (ICD-10-PCS; 2018-06-09)
PROC: 0SQM0ZZ Repair Right Metatarsal-Phalangeal Joint, Open Approach (ICD-10-PCS; 2018-06-09)
PROC: 02HV33Z Insertion of Infusion Device into Superior Vena Cava, Percutaneous Approach (ICD-10-PCS; principal; 2018-06-13)
PROC: B5181ZA Fluoroscopy of Superior Vena Cava using Low Osmolar Contrast, Guidance (ICD-10-PCS; 2018-06-13)
PROC: B548ZZA Ultrasonography of Superior Vena Cava, Guidance (ICD-10-PCS; 2018-06-13)
DX: M86.171 Other acute osteomyelitis, right ankle and foot (principal); T33.822A Superficial frostbite of left foot, initial encounter; T33.821A Superficial frostbite of right foot, initial encounter; E44.0 Moderate protein-calorie malnutrition; E87.2 Acidosis; M00.9 Pyogenic arthritis, unspecified; L03.115 Cellulitis of right lower limb; L03.116 Cellulitis of left lower limb; B95.62 Methicillin resistant Staphylococcus aureus infection as the cause of diseases classified elsewhere; F12.90 Cannabis use, unspecified, uncomplicated; F10.20 Alcohol dependence, uncomplicated; F19.10 Other psychoactive substance abuse, uncomplicated; F32.9 Major depressive disorder, single episode, unspecified; G40.909 Epilepsy, unspecified, not intractable, without status epilepticus; G62.9 Polyneuropathy, unspecified; L97.519 Non-pressure chronic ulcer of other part of right foot with unspecified severity; M19.071 Primary osteoarthritis, right ankle and foot; M20.41 Other hammer toe(s) (acquired), right foot; Z68.28 Body mass index [BMI] 28.0-28.9, adult; Z59.0 Homelessness; X31.XXXA Exposure to excessive natural cold, initial encounter; Y93.89 Activity, other specified; Y92.89 Other specified places as the place of occurrence of the external cause; Y99.8 Other external cause status
CPT/HCPCS: 36415; 73630; 87806; 99285; J3490; S0020; 36573; 80048; 80053; 80074; 80202; 80307; 82010; 82040; 82550; 83036; 83605; 83735; 85025; 85651; 86140; 87040; 87070; 87077; 87147; 87186; 87205; 96374; A9585; C1713; G0378; J0295; J0878; J1170; J1885; J2250; J2405; J2543; J2704; J3010; J3370; C1751; G0475; J7030; J7050

== ENCOUNTER 2019-05-01 19:52 | Emergency (ER) | payer MEDICAID ==
[~2019-05-01] VITALS: Ht 175.3 cm; Wt 90.9 kg
[~2019-05-01 19:52] MED LIST changes: +ACET325T14 PO; +DAPT500V6 IV; +GABA300C10 PO; +IBUP-1222 PO; +ONDA4TAB13 PO
[2019-05-01] MEDS ORDERED: LORazepam 2 MG/ML, 1ML ONE (20:14)
[2019-05-01] MEDS ORDERED: MAGNESIUM SULFATE 1 GM, THIAMINE 100 MG, FOLIC ACID 1 MG, MVI ADULT 10 ML in SODIUM CHL... IV ONE (20:30)
[2019-05-01] MEDS ORDERED: LORazepam 2 MG/ML, 1ML IVPush ONE (20:30)
[2019-05-01] MEDS ORDERED: SODIUM CHLORIDE 0.9% 1,000ML IVBOLUS ONE (20:30)
[2019-05-01] MEDS ORDERED: LORazepam 2 MG/ML, 1ML IVPush PRN (20:30)
[2019-05-01] MEDS ORDERED: SODIUM CHLORIDE FLUSH 10ML SYR IVF ONE (20:30)
[2019-05-01 20:49] LABS: RAPID INFLUENZA A Negative (Negative); RAPID INFLUENZA B Negative (Negative)
[2019-05-01] MEDS ORDERED: ACETAMINOPHEN 500 MG TABLET ONE (20:50)
[2019-05-01] MEDS ORDERED: ACETAMINOPHEN 500 MG TABLET PO ONE (21:00)
[2019-05-01 21:13] LABS: BASOPHILS # (AUTO) 0.02 x10^3/uL (0-0.1); BASOPHILS % (AUTO) 0 % (0-1); EOSINOPHILS # (AUTO) 0.01 x10^3/uL (0-0.4); EOSINOPHILS % (AUTO) 0 % (1-7); LYMPHOCYTES # (AUTO) 1.14 x10^3/uL (1-3.4); LYMPHOCYTES % (AUTO) 22 % (22-44); MD NO; MEAN CORPUSCULAR HEMOGLOBIN 30.5 pg (27.5-34.5); MEAN CORPUSCULAR HGB CONC 33.9 g/dL (33.2-36.2); MEAN PLATELET VOLUME 7.2 fL (7.4-10.4); MONOCYTES # (AUTO) 0.42 x10^3/uL (0.2-0.8); MONOCYTES % (AUTO) 8 % (2-9); NEUTROPHILS # (AUTO) 3.63 x10^3/uL (1.8-6.8); NEUTROPHILS % (AUTO) 70 % (42-75); PLATELET COUNT 160 x10^3/uL (130-400); RED BLOOD COUNT 5.14 x10^6/uL (4.38-5.82); RED CELL DISTRIBUTION WIDTH 14.1 % (9.4-14.8)
[2019-05-01 21:22] LABS: ALANINE AMINOTRANSFERASE 27 U/L (12-78); ALBUMIN 3.8 g/dL (3.4-5.0); ANION GAP 10 mmol/L (5-15); CALCIUM 8.9 mg/dL (8.5-10.1); CHLORIDE 103 mmol/L (98-107); CREATININE 1.02 mg/dL (0.7-1.3)
[2019-05-01 21:25] LABS: ALKALINE PHOSPHATASE 98 U/L (45-117); BILIRUBIN,TOTAL 0.3 mg/dL (0.2-1.0); TOTAL PROTEIN 7.4 g/dL (6.4-8.2)
[2019-05-01 21:49] VITALS: BP 167/107
[2019-05-01] MEDS ORDERED: THIAMINE 100MG TABLET PO ONE (22:00)
--- NOTE | 2019-05-01 22:06 | NUR ---
REPORT FROM CAPRICE ROBBINS. PT RESTING AND FLUIDS RUNNING. PT TO BE DISCHARGED AT 1828
[2019-05-01] MEDS ORDERED: THIAMINE 100MG TABLET ONE (22:16)
--- NOTE | 2019-05-01 22:33 | NUR ---
Patient given discharge instructions and they have confirmed that they understand the instructions. Patient ambulatory with steady gait.
== END 2019-05-01 22:35 | disposition home or self-care (01) ==
LOC: ED 21:20
DX: F10.231 Alcohol dependence with withdrawal delirium (principal); J06.9 Acute upper respiratory infection, unspecified; F17.210 Nicotine dependence, cigarettes, uncomplicated; Y90.0 Blood alcohol level of less than 20 mg/100 ml
CPT/HCPCS: 36415; 71045; 80053; 80307; 83690; 85025; 87081; 87147; 87400; 87880; 93005; 96365; 96366; 96375; 99285; J2060; J3411; J3475; J7030

== ENCOUNTER 2019-06-18 07:47 | Emergency (ER) | payer MEDICAID ==
[~2019-06-18] VITALS: Ht 175.3 cm; Wt 100.0 kg
--- NOTE | 2019-06-18 08:08 | NUR ---
SERENA SHAVER FROM HOME FOR ETOH DETOX. PT LAST DRINK 24 HRS AGO, HAS BEEN REGULARLY CONSUMING 0.5 GALLON VODKA/DAY. ETOH HX SINCE 16 YO. PT WITH FULL BODY ACHES AND INTERMITTENT SHAKINESS. AOX4. SIDE RAILS UP, CALL LIGHT IN REACH. REPORT TO ROSENDO ENRIQUEZ.
[2019-06-18] MEDS ORDERED: LORazepam 2 MG/ML, 1ML ONE ×2 (08:11→10:06)
[2019-06-18] MEDS ORDERED: ONDANSETRON 2MG/ML, 2ML ONE (08:11)
[2019-06-18] MEDS: LORazepam 2 MG/ML, 1ML IVPush PRN ×4 (08:13→10:47)
--- NOTE | 2019-06-18 08:23 | NUR ---
NS INFUSING AT THIS TIME. PT TOLERATED WELL.
[2019-06-18] MEDS ORDERED: SODIUM CHLORIDE 0.9% 1,000ML IVBOLUS ONE ×2 (08:30→09:00)
[2019-06-18] MEDS ORDERED: SODIUM CHLORIDE FLUSH 10ML SYR IVF ONE (08:30)
[2019-06-18] MEDS ORDERED: ONDANSETRON 2MG/ML, 2ML IVPush ONE (08:30)
[2019-06-18 08:33] LABS: BASOPHILS # (AUTO) 0.02 x10^3/uL (0-0.1); BASOPHILS % (AUTO) 0 % (0-1); EOSINOPHILS # (AUTO) 0.02 x10^3/uL (0-0.4); EOSINOPHILS % (AUTO) 0 % (1-7); LYMPHOCYTES # (AUTO) 1.36 x10^3/uL (1-3.4); LYMPHOCYTES % (AUTO) 22 % (22-44); MD NO; MEAN CORPUSCULAR HEMOGLOBIN 30.4 pg (27.5-34.5); MEAN CORPUSCULAR HGB CONC 33.8 g/dL (33.2-36.2); MEAN CORPUSCULAR VOLUME 90.1 fL (81-97); MEAN PLATELET VOLUME 6.5 fL (7.4-10.4); MONOCYTES # (AUTO) 0.47 x10^3/uL (0.2-0.8); MONOCYTES % (AUTO) 8 % (2-9); NEUTROPHILS # (AUTO) 4.29 x10^3/uL (1.8-6.8); NEUTROPHILS % (AUTO) 70 % (42-75); PLATELET COUNT 317 x10^3/uL (130-400); RED BLOOD COUNT 5.35 x10^6/uL (4.38-5.82); RED CELL DISTRIBUTION WIDTH 14.6 % (9.4-14.8)
[2019-06-18 08:45] LABS: ALANINE AMINOTRANSFERASE 22 U/L (12-78); ALBUMIN 3.8 g/dL (3.4-5.0); ANION GAP 11 mmol/L (5-15); CHLORIDE 104 mmol/L (98-107)
[2019-06-18 08:48] LABS: ALKALINE PHOSPHATASE 117 U/L (45-117); BILIRUBIN,TOTAL 0.3 mg/dL (0.2-1.0); TOTAL PROTEIN 7.5 g/dL (6.4-8.2)
--- NOTE | 2019-06-18 08:52 | NUR ---
PT C/O TJ AND REQUESTING ATIVAN. PT MEDICATED PER EMAR. PT TOLERATED WELL.
--- NOTE | 2019-06-18 09:06 | NUR ---
URINAL AT BEDSIDE AT THIS TIME.
--- NOTE | 2019-06-18 09:33 | NUR ---
ns still infusing at this time. pt sleeping in gurney. resps even and unlabored.
--- NOTE | 2019-06-18 10:10 | NUR ---
PT REQEUSTING ATIVAN D/T SHAKY MOVEMENT. PT MEDICATED PER EMAR. PT TOLERATED WELL. PT'S AOX4. RESPS EVEN AND UNLABORED.
--- NOTE | 2019-06-18 10:47 | NUR ---
PT REQEUSTING ATIVAN D/T SHAKY MOVEMENT. PT MEDICATED PER EMAR. PT TOLERATED WELL. PT'S AOX4. RESPS EVEN AND UNLABORED.
[2019-06-18 11:17] VITALS: BP 136/79
--- NOTE | 2019-06-18 11:24 | NUR ---
Patient given discharge instructions and they have confirmed that they understand the instructions.
== END 2019-06-18 11:25 | disposition home or self-care (01) ==
LOC: ED 08:50
DX: F10.239 Alcohol dependence with withdrawal, unspecified (principal); R25.1 Tremor, unspecified; Y90.9 Presence of alcohol in blood, level not specified
CPT/HCPCS: 36415; 36600; 80053; 80307; 82803; 83605; 85025; 96374; 96375; 96376; 99285; J2060; J2405; J7030

== ENCOUNTER 2019-09-23 04:37 | Emergency (ER) | payer MEDICAID ==
[~2019-09-23] VITALS: Ht 172.7 cm; Wt 98.8 kg
[2019-09-23 04:41] VITALS: BP 144/93
--- NOTE | 2019-09-23 05:12 | NUR ---
ELIDIA AKHTAR, AT BS FOR PT HISTORY AND ASSESSMENT.
--- NOTE | 2019-09-23 05:28 | NUR ---
PT D/C WITH WORK NOTE. PT AMBULATES TO REGISTRATION DESK WITH STEADY GAIT FOR D/C HOME.
== END 2019-09-23 05:46 | disposition home or self-care (01) ==
LOC: ED 05:07
DX: F10.10 Alcohol abuse, uncomplicated (principal); F17.290 Nicotine dependence, other tobacco product, uncomplicated; Y90.9 Presence of alcohol in blood, level not specified
CPT/HCPCS: 99281

== ENCOUNTER 2020-06-20 19:53 | Emergency (ER) | payer MEDICAID ==
[~2020-06-20] VITALS: Ht 182.9 cm; Wt 127.3 kg
--- NOTE | 2020-06-20 20:13 | NUR ---
BIB SIVAKUMAR STATES PT WAS DETOXINIG THIS AM. GIRLFRIEND BOUGHT BEER FOR PT AND WENT TO WORK. GOT HOME PT WAS FOUND DOWN, HIT BACK OF HEAD, SLURRED SPEECH VERY DIFFICUTLT TO UNDERSTAND. PT FULL CR MONITORS MD TO BEDSIDE RECEIVED ORDERS.
--- NOTE | 2020-06-20 20:15 | NUR ---
PT TAKEN TO CT BY ORTHODONTIC TECHNICIAN.
--- NOTE | 2020-06-20 21:20 | NUR ---
PT CONTINUES TO REMOVE MONITORING EQUIPMENT STATING THAT HE WANTS TO LEAVE.
--- NOTE | 2020-06-20 21:38 | NUR ---
PT TO DOOR WAY WITHOUT CLOTHES STATING HE WANT TO LEAVE.
--- NOTE | 2020-06-20 21:39 | NUR ---
PT WANTING TO LEAVE. PROVIDER NOTIFIED OF PATIENT WANTING MEDICATIONS FOR DEXTOX. PT TOLD TO STAY IN BED.
--- NOTE | 2020-06-20 22:50 | NUR ---
PT GAVE PHONE NUMBER FOR RIDE. FRIEND CALLED TO [employer]CTION [employer] PT. PT GROGGY BY ABLE TO AMBULATE. PT CHANGED IN CLOTHES WAITING FOR FRIEND FOR RIDE.
[2020-06-20 23:12] VITALS: BP 130/80
== END 2020-06-20 23:16 | disposition home or self-care (01) ==
LOC: ED 23:00
DX: F10.220 Alcohol dependence with intoxication, uncomplicated (principal); R51.9 Headache, unspecified; Y90.0 Blood alcohol level of less than 20 mg/100 ml; F17.200 Nicotine dependence, unspecified, uncomplicated; W18.30XA Fall on same level, unspecified, initial encounter; Y93.89 Activity, other specified; Y92.009 Unspecified place in unspecified non-institutional (private) residence as the place of occurrence of the external cause; Y99.8 Other external cause status
CPT/HCPCS: 70450; 99284

== ENCOUNTER 2020-07-09 12:22 | Inpatient (IN) | payer MEDICAID ==
[~2020-07-09] VITALS: Ht 175.3 cm; Wt 112.0 kg
[2020-07-09] MEDS ORDERED: LORazepam 2 MG/ML, 1ML ONE ×4 (12:32→16:48)
--- NOTE | 2020-07-09 12:33 | NUR ---
TASK: MEDICATED WITH 2MG OF IV ATIVAN FOR ACUTE ETOH WITHDRAWAL AFTER DR. MORENO ASSESSMENT
[2020-07-09] MEDS: LORazepam 2 MG/ML, 1ML IVPush PRN ×3 (12:42→14:42)
[2020-07-09] MEDS ORDERED: MAGNESIUM SULFATE 1 GM, THIAMINE 100 MG, FOLIC ACID 1 MG, MVI ADULT 10 ML in SODIUM CHL... IV ONE (13:30)
[2020-07-09] MEDS ORDERED: CEFTRIAXONE 2 GM in DEXTROSE 5% 50 ML IVPB ONE (13:30)
[2020-07-09 13:41] LABS: BASOPHILS % (AUTO) 0 % (0-1); EOSINOPHILS % (AUTO) 0 % (1-7); LYMPHOCYTES % (AUTO) 11 % (22-44); MEAN CORPUSCULAR HGB CONC 34.6 g/dL (33.2-36.2); MONOCYTES % (AUTO) 11 % (2-9); NEUTROPHILS % (AUTO) 79 % (42-75); PLATELET COUNT 239 x10^3/uL (130-400); RED BLOOD COUNT 4.81 x10^6/uL (4.38-5.82); RED CELL DISTRIBUTION WIDTH 14.8 % (9.4-14.8)
[2020-07-09 13:50] LABS: ANION GAP 8 mmol/L (5-15); CALCIUM 9.2 mg/dL (8.5-10.1); CHLORIDE 98 mmol/L (98-107); CREATININE 1.07 mg/dL (0.7-1.3); MD NO
[2020-07-09 13:51] LABS: ALANINE AMINOTRANSFERASE 38 U/L (12-78); ALBUMIN 2.8 g/dL (3.4-5.0)
[2020-07-09 13:54] LABS: ALKALINE PHOSPHATASE 158 U/L (45-117); BILIRUBIN,TOTAL 0.9 mg/dL (0.2-1.0); TOTAL PROTEIN 7.2 g/dL (6.4-8.2)
--- NOTE | 2020-07-09 15:45 | NUR ---
DR MORENO TO BEDSIDE TO ASSESS. DISCUSS POC
[2020-07-09] MEDS ORDERED: SODIUM CHLORIDE FLUSH 10ML SYR IVF PRN (16:30)
[2020-07-09] MEDS ORDERED: PHARMACY INSTRUCTION MC PRN ×4 (16:30)
[2020-07-09] MEDS ORDERED: FOLIC ACID 1 MG TABLET PO ONE (16:30)
[2020-07-09] MEDS ORDERED: VANCOMYCIN PER PHARMACY MC PRN (16:30)
[2020-07-09] MEDS ORDERED: POTASSIUM CHLORIDE 20 MEQ, MVI ADULT 10 ML, FOLIC ACID 1 MG, MAGNESIUM SULFATE 1 GM in ... IV SCH (16:30)
[2020-07-09] MEDS: POTASSIUM CHLORIDE 20 MEQ, MVI ADULT 10 ML, FOLIC ACID 1 MG, MAGNESIUM SULFATE 1 GM in ... IV SCH (16:30)
[2020-07-09] MEDS ORDERED: ENOXAPARIN 40 MG/0.4 ML ONE (16:48)
[2020-07-09] MEDS: ENOXAPARIN 40 MG/0.4 ML SQ SCH (16:54)
[2020-07-09] MEDS: AMPICILLIN/SULBACTAM 3 GM in SODIUM CHLORIDE 0.9% 100 ML IV SCH ×2 (16:55→22:37)
[2020-07-09] MEDS ORDERED: OMNIPAQUE 350 MG/ML, 150 ML BOTTLE ONE (18:02)
[2020-07-09] MEDS ORDERED: PHENOBARBITAL SODIUM 730 MG in SODIUM CHLORIDE 0.9% 50 ML IVPB ONE (19:00)
[2020-07-09] MEDS ORDERED: PHENOBARBITAL ETOH DETOX PER PHARMACY MC PRN ×2 (19:00)
[2020-07-09] MEDS ORDERED: THIAMINE 200 MG in DEXTROSE 5% 50 ML IVPB ONE (19:05)
[2020-07-09] MEDS ORDERED: PHARMACOKINETIC MONITORING MC PRN (19:30)
[2020-07-09] MEDS: THIAMINE 100MG TABLET PO SCH (19:55)
[2020-07-09] MEDS ORDERED: VANCOMYCIN 2,500 MG in SODIUM CHLORIDE 0.9% 500 ML IV ONE (20:00)
[2020-07-10 00:41] LABS: AMPHETAMINE SCREEN, URINE Negative (Negative); BARBITURATE SCREEN, URINE Positive (Negative); BENZODIAZEPINE SCREEN, URINE Negative (Negative); CANNABINOID SCREEN, URINE Negative (Negative); COCAINE SCREEN, URINE Negative (Negative); METHADONE SCREEN, URINE Negative (Negative); OPIATE SCREEN, URINE Negative (Negative)
[2020-07-10] MEDS: POTASSIUM CHLORIDE 20 MEQ, MVI ADULT 10 ML, FOLIC ACID 1 MG, MAGNESIUM SULFATE 1 GM in ... IV SCH ×2 (01:02→08:52)
[2020-07-10 04:28] LABS: BASOPHILS % (AUTO) 1 % (0-1); EOSINOPHILS % (AUTO) 0 % (1-7); LYMPHOCYTES % (AUTO) 23 % (22-44); MD NO; MEAN CORPUSCULAR HEMOGLOBIN 31.2 pg (27.5-34.5); MEAN CORPUSCULAR HGB CONC 34.4 g/dL (33.2-36.2); MEAN PLATELET VOLUME 6.6 fL (7.4-10.4); MONOCYTES % (AUTO) 10 % (2-9); NEUTROPHILS % (AUTO) 66 % (42-75); PLATELET COUNT 205 x10^3/uL (130-400); RED BLOOD COUNT 4.19 x10^6/uL (4.38-5.82); RED CELL DISTRIBUTION WIDTH 15.1 % (9.4-14.8)
[2020-07-10] MEDS: AMPICILLIN/SULBACTAM 3 GM in SODIUM CHLORIDE 0.9% 100 ML IV SCH ×4 (04:45→23:20)
[2020-07-10 04:46] LABS: ANION GAP 9 mmol/L (5-15); CALCIUM 7.7 mg/dL (8.5-10.1); CHLORIDE 105 mmol/L (98-107)
[2020-07-10] MEDS ORDERED: PHENOBARBITAL SODIUM 65 MG/ML, 1ML IM SCH (09:00)
[2020-07-10] MEDS ORDERED: THIAMINE 100MG TABLET PO SCH (09:00)
[2020-07-10] MEDS: THIAMINE 100MG TABLET PO SCH (09:20)
[2020-07-10] MEDS: VANCOMYCIN 2,000 MG in SODIUM CHLORIDE 0.9% 500 ML IV SCH ×2 (09:30→20:03)
[2020-07-10] MEDS: ENOXAPARIN 40 MG/0.4 ML SQ SCH (17:01)
[2020-07-10 19:24] VITALS: BP 159/106
[2020-07-10] MEDS: PHENOBARBITAL 20 MG/5 ML ORAL SOL PO SCH (20:00)
[2020-07-11 01:12] VITALS: BP 149/98
[2020-07-11] MEDS: AMPICILLIN/SULBACTAM 3 GM in SODIUM CHLORIDE 0.9% 100 ML IV SCH ×3 (04:48→19:25)
[2020-07-11 06:37] VITALS: BP 159/101
[2020-07-11] MEDS: METOPROLOL TARTRATE 25 MG TAB PO SCH ×2 (06:39→19:25)
[2020-07-11 07:59] LABS: BASOPHILS % (AUTO) 1 % (0-1); EOSINOPHILS % (AUTO) 1 % (1-7); LYMPHOCYTES % (AUTO) 25 % (22-44); MD NO; MEAN CORPUSCULAR HEMOGLOBIN 31.7 pg (27.5-34.5); MEAN CORPUSCULAR HGB CONC 34.1 g/dL (33.2-36.2); MEAN PLATELET VOLUME 6.9 fL (7.4-10.4); MONOCYTES % (AUTO) 10 % (2-9); NEUTROPHILS % (AUTO) 64 % (42-75); PLATELET COUNT 234 x10^3/uL (130-400); RED BLOOD COUNT 4.53 x10^6/uL (4.38-5.82)
[2020-07-11 08:08] LABS: ALANINE AMINOTRANSFERASE 34 U/L (12-78); CHLORIDE 102 mmol/L (98-107)
[2020-07-11 08:15] LABS: ALBUMIN 2.7 g/dL (3.4-5.0); ALKALINE PHOSPHATASE 124 U/L (45-117); ANION GAP 6 mmol/L (5-15); BILIRUBIN,TOTAL 0.4 mg/dL (0.2-1.0); CALCIUM 8.2 mg/dL (8.5-10.1); CREATININE 0.98 mg/dL (0.7-1.3); TOTAL PROTEIN 6.9 g/dL (6.4-8.2)
[2020-07-11] MEDS: VANCOMYCIN 2,000 MG in SODIUM CHLORIDE 0.9% 500 ML IV SCH (09:15)
[2020-07-11] MEDS: THIAMINE 100MG TABLET PO SCH (09:16)
[2020-07-11] MEDS: PHENOBARBITAL 20 MG/5 ML ORAL SOL PO SCH ×2 (09:16→21:24)
[2020-07-11] MEDS: MULTIVITAMIN 1 TABLET PO SCH (09:16)
[2020-07-11] MEDS: FOLIC ACID 1 MG TABLET PO SCH (09:16)
[2020-07-11] MEDS ORDERED: DEXTROSE 4 GM TAB.CHEW PO PRN (10:00)
[2020-07-11] MEDS ORDERED: DEXTROSE 50%, 50ML SYRINGE IVPush PRN (10:00)
[2020-07-11] MEDS ORDERED: GLUCAGON 1 MG IM PRN (10:00)
[2020-07-11] MEDS: SODIUM CHLORIDE FLUSH 10ML SYR IVF SCH ×2 (10:42→21:24)
[2020-07-11 19:25] VITALS: BP 154/101
[2020-07-11] MEDS: ENOXAPARIN 40 MG/0.4 ML SQ SCH (21:23)
[2020-07-12] MEDS: AMPICILLIN/SULBACTAM 3 GM in SODIUM CHLORIDE 0.9% 100 ML IV SCH ×3 (01:40→13:30)
[2020-07-12 01:41] VITALS: BP 145/94
[2020-07-12] MEDS ORDERED: VANCOMYCIN 2,000 MG in SODIUM CHLORIDE 0.9% 500 ML IV SCH (04:00)
[2020-07-12] MEDS: METOPROLOL TARTRATE 25 MG TAB PO SCH (05:52)
[2020-07-12 07:10] VITALS: BP 134/95
[2020-07-12] MEDS: FOLIC ACID 1 MG TABLET PO SCH (08:24)
[2020-07-12] MEDS: MULTIVITAMIN 1 TABLET PO SCH (08:24)
[2020-07-12] MEDS: THIAMINE 100MG TABLET PO SCH (08:25)
[2020-07-12] MEDS: SODIUM CHLORIDE FLUSH 10ML SYR IVF SCH (08:28)
[2020-07-12] MEDS ORDERED: PHENOBARBITAL 20 MG/5 ML ORAL SOL PO SCH (09:00)
[2020-07-12] MEDS ORDERED: LINE600T12 PO (12:27)
[2020-07-12] MEDS ORDERED: METO25TA35 PO (12:27)
[2020-07-12] MEDS ORDERED: AMOX1TAB64 PO (12:27)
[2020-07-14] MEDS ORDERED: PHENOBARBITAL 20 MG/5 ML ORAL SOL PO SCH (09:00)
[2020-07-15] MEDS ORDERED: PHENOBARBITAL 20 MG/5 ML ORAL SOL PO SCH (09:00)
== END 2020-07-12 16:07 | disposition home or self-care (01) | DRG 872 ==
LOC: ED 16:07 → CCU 16:08 → SUATTDRO 16:09 → ED 16:10 → SUATTDRO 16:47 → 3N 07-10 10:40
PROVIDERS: ADMIT Family Medicine; ATTEND Hospitalist
DX: A41.9 Sepsis, unspecified organism (principal); E87.1 Hypo-osmolality and hyponatremia; L03.115 Cellulitis of right lower limb; L03.311 Cellulitis of abdominal wall; F10.239 Alcohol dependence with withdrawal, unspecified; E16.2 Hypoglycemia, unspecified; I10 Essential (primary) hypertension; E66.9 Obesity, unspecified; D64.9 Anemia, unspecified; A49.02 Methicillin resistant Staphylococcus aureus infection, unspecified site; R19.7 Diarrhea, unspecified; Z85.038 Personal history of other malignant neoplasm of large intestine; Z71.3 Dietary counseling and surveillance
CPT/HCPCS: 36415; 84145; 96365; 99291; J7042; 80048; 80053; 80202; 80307; 80320; 83605; 83690; 83735; 84100; 85025; 87040; 87070; 87077; 87081; 87147; 87186; 87205; G0378; J0295; J0696; J1650; J2560; J3370; J3411; J3475; J3480; Q9967; G0480; J2060; J7030; J7040